=== PATIENT | female | born 1960 | race Caucasian/White ===

== ENCOUNTER 2017-01-20 12:31 | Emergency (ER) | payer MEDICARE, OTHER ==
[~2017-01-20] VITALS: Ht 172.7 cm; Wt 54.4 kg
[~2017-01-20 12:31] MED LIST: HYDR-2758 PO; IBUP-1060 PO; MECL12.52 PO; OMEP20CA9 PO; PROC5TAB34 PO; [UNRECOGNIZED DRUG - OTHER]
[2017-01-20 13:15] VITALS: BP 132/80
--- NOTE | 2017-01-20 13:18 | PHYS DOC ---
Past Medical History Past Medical History: GERD, HIV, Other Additional Past Medical Histor: Headaches,Vertigo Past Surgical History: Tubal ligation, Other Additional Past Surgical Histo: Fx jaw with repair. Alcohol Use: Occasionally Drug Use: Marijuana Adult General Chief Complaint Chief Complaint: MECHANICAL FALL HPI HPI Patient is a 56 year old female with a history of HIV presents to the ED complaining of right knee pain 2 days. Patient was standing at a bar and fell down injuring her right knee. No symptoms prior to fall. Describes the pain as sharp. Rates the pain as 8 out of 10. Denies head/neck injury, LOC, vision changes, laceration, nausea/vomiting, chest pain or shortness of breath. Review of Systems Review of Systems Constitutional: Denies fever or chills [] Eyes: Denies change in visual acuity, redness, or eye pain [] HENT: Denies nasal congestion or sore throat [] Respiratory: Denies cough or shortness of breath [] Cardiovascular: No additional information not addressed in HPI [] GI: Denies abdominal pain, nausea, vomiting, bloody stools or diarrhea [] : Denies dysuria or hematuria [] Musculoskeletal: Complains of knee pain. Denies back pain. [] Integument: Denies rash or skin lesions [] Neurologic: Denies headache, focal weakness or sensory changes [] Endocrine: Denies polyuria or polydipsia [] All other systems were reviewed and found to be within normal limits, except as documented in this note. Current Medications Current Medications Current Medications Medications (Trade) Dose Ordered Sig/Isaac Start Time Stop Time Status Last Admin Dose Admin Acetaminophen/ Hydrocodone Bitart (Lortab 5/325) 1 tab 1X ONCE 01/20/17 13:45 01/20/17 13:46 DC 01/20/17 13:53 1 TAB Allergies Allergies Allergies Coded Allergies Type Severity Reaction Last Updated Verified No Known Drug Allergies 11/16/14 No Physical Exam Physical Exam Constitutional: Well developed, well nourished, no acute distress, non-toxic appearance. [] HENT: Normocephalic, atraumatic, bilateral external ears normal, oropharynx moist, no oral exudates, nose normal. [] Eyes: PERRLA, EOMI, conjunctiva normal, no discharge. [] Neck: Normal range of motion, no tenderness, supple, no stridor. [] Cardiovascular:Heart rate regular rhythm, no murmur [] Lungs & Thorax: Bilateral breath sounds clear to auscultation [] Abdomen: Bowel sounds normal, soft, no tenderness, no masses, no pulsatile masses. [] Skin: Warm, dry, no erythema, no rash. [] Back: No tenderness, no CVA tenderness. [] Extremities: MILD ANTERIOR RIGHT KNEE TENDERNESS/SWELLING. NO OVERLYING SKIN CHANGES., no cyanosis, no clubbing, ROM intact, no edema. [] Neurologic: Alert and oriented X 3, normal motor function, normal sensory function, no focal deficits noted. [] Psychologic: Affect normal, judgement normal, mood normal. [] Current Patient Data Vital Signs Vital Signs Date Time Temp Pulse Resp B/P (MAP) Pulse Ox O2 Delivery O2 Flow Rate FiO2 01/20/17 13:15 97.9 75 16 97 Room Air 97.9 EKG EKG [] Radiology/Procedures Radiology/Procedures []PROCEDURE: KNEE RIGHT 3V Right knee 3 views. History: Recent fall, right knee pain 3 views were taken of the right knee. On the lateral view there is irregularity of the inferior patella, possible nondisplaced fracture. There is no joint effusion. No other fracture or osseous abnormality is noted. Impression: 1. Possible nondisplaced fracture of the inferior patella. Course & Med Decision Making Course & Med Decision Making Pertinent Labs and Imaging studies reviewed. (See chart for details) []Discussed imaging findings with patient. Patient's pain improved. Vital stable , no acute distress. A knee immobilizer placed. Neurovascular intact post placement. Crutches given. Discussed follow-up with orthopedics early this week. Remain non-weightbearing until then. Discussed reasons to return to the ED. Patient understands and agrees with plan. Dragon Disclaimer Dragon Disclaimer This electronic medical record was generated, in whole or in part, using a voice recognition dictation system. Departure Departure Impression: Primary Impression: Patella fracture Disposition: 01 HOME, SELF-CARE Condition: IMPROVED Referrals: VITO LOPEZ MD (PCP) Patient Instructions: Patellar Fracture, Adult Scripts Hydrocodone/Apap 5-325 (NORCO 5-325 TABLET) 1 Each Tablet 1 TAB PO TID, #10 TAB Prov: CAYDEN HAMM 01/20/17 CAYDEN HAMM Jan 20, 2017 13:18
--- NOTE | 2017-01-20 13:41 | RAD ---
Right knee 3 views. History: Recent fall, right knee pain 3 views were taken of the right knee. On the lateral view there is irregularity of the inferior patella, possible nondisplaced fracture. There is no joint effusion. No other fracture or osseous abnormality is noted. Impression: 1. Possible nondisplaced fracture of the inferior patella.
[2017-01-20] MEDS ORDERED: HYDROcodone/APAP 5/325MG 1 TAB TABLET PO ONE (13:45)
[2017-01-20] MEDS ORDERED: HYDR-971 PO (13:58)
== END 2017-01-20 14:08 | disposition home or self-care (01) ==
LOC: ER 12:31
DX: S82.001A Unspecified fracture of right patella, initial encounter for closed fracture (principal); K21.9 Gastro-esophageal reflux disease without esophagitis; F12.10 Cannabis abuse, uncomplicated; Z21 Asymptomatic human immunodeficiency virus [HIV] infection status; W18.39XA Other fall on same level, initial encounter; Y93.89 Activity, other specified; Y92.89 Other specified places as the place of occurrence of the external cause; Y99.8 Other external cause status
CPT/HCPCS: 29505; 73562; 99284-25

== ENCOUNTER 2018-01-21 12:50 | Emergency (ER) | payer MEDICARE, OTHER ==
[~2018-01-21] VITALS: Ht 175.3 cm; Wt 59.4 kg
[~2018-01-21 12:50] MED LIST changes: -HYDR-2758 PO; +HYDR-2761 PO; +HYDR-3164 PO
[2018-01-21] MEDS ORDERED: LIDO:MAALOX 1:1 20 ML SINGLE DOSE. PO ONE ×2 (13:15→14:45)
[2018-01-21] MEDS ORDERED: IV NORMAL SALINE 1000ML BAG 1,000 ML IV ONE ×2 (13:15)
[2018-01-21] MEDS ORDERED: ONDANSETRON PF 4 MG/2 ML VIAL. IV ONE ×2 (13:15→14:00)
[2018-01-21 13:37] LABS: BASO % 0 % (0-3); EOS # 0.1 x10^3/uL (0.0-0.7); EOS % 1 % (0-3); HEMATOCRIT 39.7 % (36.0-47.0); HEMOGLOBIN 13.7 g/dL (12.0-15.5); LYMPH # 1.6 x10^3/uL (1.0-4.8); LYMPH % 13 % (24-48); MEAN CORPUSCULAR HEMOGLOBIN 36 pg (25-35); MEAN CORPUSCULAR HGB CONC 35 g/dL (31-37); MEAN CORPUSCULAR VOLUME 103 fL (79-100); MONO # 0.6 x10^3/uL (0.0-1.1); MONO % 5 % (0-9); NEUT % 81 % (31-73); PLATELET COUNT 201 x10^3/uL (140-400); RED BLOOD COUNT 3.84 x10^6/uL (3.50-5.40); RED CELL DISTRIBUTION WIDTH 13.1 % (11.5-14.5); WHITE BLOOD COUNT 12.3 x10^3/uL (4.0-11.0)
[2018-01-21 13:47] LABS: CALCIUM 9.6 mg/dL (8.5-10.1); CREATININE 1.1 mg/dL (0.6-1.0); GFR 51.4; POTASSIUM 4.1 mmol/L (3.5-5.1)
--- NOTE | 2018-01-21 13:49 | EKG ---
[facility] [address] [place] [address] Test Date: 2018-01-21 Test Time: 13:34:03 Pat Name: INESSA CARRIZALES Department: Room: Gender: F Assistant Account Manager: NAREN : 1960 Requested By: LISSETH HENSON Order Number: [id number] Reading MD: Measurements Intervals Nursery Rate: 50 P: 60 PA: 140 QRS: -28 QRSD: 82 T: 56 QT: 470 QTc: 431 Interpretive Statements SINUS RHYTHM LEFTWARD AXIS OTHERWISE NORMAL ECG RI6.01 No previous ECG available for comparison
[2018-01-21 13:52] LABS: ALBUMIN 4.1 g/dL (3.4-5.0); ALBUMIN/GLOBULIN RATIO 1.2 (1.0-1.7); TOTAL BILIRUBIN 0.3 mg/dL (0.2-1.0); TOTAL PROTEIN 7.5 g/dL (6.4-8.2)
--- NOTE | 2018-01-21 13:53 | PHYS DOC ---
Past Medical History Past Medical History: GERD, HIV, Other Additional Past Medical Histor: Headaches,Vertigo Past Surgical History: Tubal ligation, Other Additional Past Surgical Histo: Fx jaw with repair. Alcohol Use: Occasionally Drug Use: Marijuana Adult General Chief Complaint Chief Complaint: NAUSEA/VOMITING/DIARRHA HPI HPI Patient is a 57 year old f who presents for evaluation of intractable vomiting. pt reports history of esophageal stenosis requiring dilation approx 1 year ago. Reports increased reflux/GERD symptoms of the past few weeks. Ran out of her omeprazole approximately 1-2 months ago. Has an appointment with GI on Sunday. Patient reports intractable vomiting this a.m. Unable tolerate fluids. Denies any sensation of food bolus or impacted foreign body. No chest pain. No abdominal pain. Denies any diarrhea, fever, GI bleed symptoms. Review of Systems Review of Systems Constitutional: Denies fever or chills [] Eyes: Denies change in visual acuity, redness, or eye pain [] HENT: Denies nasal congestion or sore throat [] Respiratory: Denies cough or shortness of breath [] Cardiovascular: No chest pain, No Orthopnea, no LE edema GI: No abdominal pain, No diarrhea. Vomiting and nausea present : Denies dysuria or hematuria [] Musculoskeletal: Denies back pain or joint pain [] Integument: Denies rash or skin lesions [] Neurologic: Denies headache, focal weakness or sensory changes [] Endocrine: Denies polyuria or polydipsia [] All other systems were reviewed and found to be within normal limits, except as documented in this note. Current Medications Current Medications Current Medications Medications (Trade) Dose Ordered Sig/Isaac Start Time Stop Time Status Last Admin Dose Admin Metoclopramide HCl (Reglan Vial) 10 mg 1X ONCE 01/21/18 14:00 01/21/18 14:01 DC 01/21/18 14:13 10 MG Multi-Ingredient Mouthwash/Gargle (Gi Cocktail) 20 ml ONCE ONCE 01/21/18 14:45 01/21/18 14:46 DC Ondansetron HCl (Zofran) 8 mg 1X ONCE 01/21/18 14:00 01/21/18 14:01 DC 01/21/18 14:17 8 MG Sodium Chloride 1,000 ml @ 1,000 mls/hr 1X ONCE 01/21/18 13:15 01/21/18 14:14 DC 01/21/18 13:31 1,000 MLS/HR Allergies Allergies Allergies Coded Allergies Type Severity Reaction Last Updated Verified No Known Drug Allergies 11/16/14 No Physical Exam Physical Exam Constitutional: Well developed, well nourished, appears stated age. HENT: Normocephalic, atraumatic, Neck: no stridor. [] Cardiovascular:Heart rate regular rhythm, no murmur [] Lungs & Thorax: Bilateral breath sounds clear to auscultation [] Abdomen: Bowel sounds normal, soft, no tenderness, no masses, no pulsatile masses. [] Skin: Warm, dry, no erythema, no rash. [] Back: No tenderness, no CVA tenderness. [] Extremities: No tenderness, no edema. [] Neurologic: Alert and oriented X 3, no focal deficits noted. [] Psychologic: Affect normal, judgement normal, mood normal. [] Current Patient Data Vital Signs Vital Signs Date Time Temp Pulse Resp B/P (MAP) Pulse Ox O2 Delivery O2 Flow Rate FiO2 01/21/18 14:09 56 212/100 (137) 97 Room Air 01/21/18 13:17 97.5 16 97.5 Lab Values Laboratory Tests Test 01/21/18 13:24 White Blood Count 12.3 x10^3/uL (4.0-11.0) H Red Blood Count 3.84 x10^6/uL (3.50-5.40) Hemoglobin 13.7 g/dL (12.0-15.5) Hematocrit 39.7 % (36.0-47.0) Mean Corpuscular Volume 103 fL (79-100) H Mean Corpuscular Hemoglobin 36 pg (25-35) H Mean Corpuscular Hemoglobin Concent 35 g/dL (31-37) Red Cell Distribution Width 13.1 % (11.5-14.5) Platelet Count 201 x10^3/uL (140-400) Neutrophils (%) (Auto) 81 % (31-73) H Lymphocytes (%) (Auto) 13 % (24-48) L Monocytes (%) (Auto) 5 % (0-9) Eosinophils (%) (Auto) 1 % (0-3) Basophils (%) (Auto) 0 % (0-3) Neutrophils # (Auto) 10.0 x10^3uL (1.8-7.7) H Lymphocytes # (Auto) 1.6 x10^3/uL (1.0-4.8) Monocytes # (Auto) 0.6 x10^3/uL (0.0-1.1) Eosinophils # (Auto) 0.1 x10^3/uL (0.0-0.7) Basophils # (Auto) 0.0 x10^3/uL (0.0-0.2) Sodium Level 142 mmol/L (136-145) Potassium Level 4.1 mmol/L (3.5-5.1) Chloride Level 103 mmol/L (98-107) Carbon Dioxide Level 26 mmol/L (21-32) Anion Gap 13 (6-14) Blood Urea Nitrogen 22 mg/dL (7-20) H Creatinine 1.1 mg/dL (0.6-1.0) H Estimated GFR (Cockcroft-Gault) 51.4 BUN/Creatinine Ratio 20 (6-20) Glucose Level 89 mg/dL (70-99) Calcium Level 9.6 mg/dL (8.5-10.1) Total Bilirubin 0.3 mg/dL (0.2-1.0) Aspartate Amino Transferase (AST) 24 U/L (15-37) Alanine Aminotransferase (ALT) 21 U/L (14-59) Alkaline Phosphatase 51 U/L (46-116) Troponin I Quantitative < 0.017 ng/mL (0.000-0.055) Total Protein 7.5 g/dL (6.4-8.2) Albumin 4.1 g/dL (3.4-5.0) Albumin/Globulin Ratio 1.2 (1.0-1.7) Lipase 319 U/L (73-393) Laboratory Tests 01/21/18 13:24 Laboratory Tests 01/21/18 13:24 EKG EKG NSR, HR 50, No ST segment changes[] Radiology/Procedures Radiology/Procedures [] Course & Med Decision Making Course & Med Decision Making Pertinent Labs and Imaging studies reviewed. (See chart for details) []Feels better, tolerating PO, has follow up with GI in two days. Reassuring electrolytes. has zofran at home. Will prescribed phenergan. Pt told RN after my evaluation that she had significant ETOH last night. She has been out of Omprazole x 1 month. Will provide Rx. Advised follow up with GI. discussed liquid diet x24 hrs. return precautions given. Patient verbalized understanding. All questions answered. Jim Disclaimer Jim Disclaimer This electronic medical record was generated, in whole or in part, using a voice recognition dictation system. Departure Departure Impression: Primary Impression: Dehydration Additional Impressions: Vomiting GERD (gastroesophageal reflux disease) Disposition: HOME, SELF-CARE Condition: IMPROVED Referrals: VITO LOPEZ MD (PCP) Patient Instructions: Nausea and Vomiting Additional Instructions: Thank you for coming to [facility]. Please repeat the attached handouts. Please follow-up with your primary care physician. Return to the ER if your symptoms worsen or you have any other concerns. Please eat a liquid diet for the next 24 hrs. Advance slowly. Scripts Omeprazole (OMEPRAZOLE) 40 Mg Capsule. 1 CAP PO DAILY, #30 CAP 3 Refills Prov: LISSETH HENSON DO 01/21/18 Promethazine Hcl (PROMETHAZINE HCL) 25 Mg Tablet 1 TAB PO PRN Q6HRS, #20 TAB Prov: LISSETH HENSON DO 01/21/18 Problem Qualifiers LISSETH HENSON DO Jan 21, 2018 13:53
[2018-01-21] MEDS ORDERED: METOCLOPRAMIDE HCL 10 MG/2 ML VIAL. IV ONE (14:00)
[2018-01-21] MEDS ORDERED: PROM25TA10 PO (15:25)
[2018-01-21] MEDS ORDERED: OMEP40CA5 PO (15:34)
[2018-01-21 15:40] VITALS: BP 149/91
[2018-01-23] MEDS ORDERED: PANT40GR PO (14:46)
== END 2018-01-21 15:41 | disposition home or self-care (01) ==
LOC: ER 12:50
DX: E86.0 Dehydration (principal); K21.9 Gastro-esophageal reflux disease without esophagitis
CPT/HCPCS: 99284; J2405; J2765; J7030; 36415; 80053; 83690; 84484; 85025; 93005

== ENCOUNTER → 2018-04-11 | Day surgery (SDC) | payer MEDICARE, OTHER ==
[~2018-04-11] MED LIST changes: +CALC-77 PO; +CLON1TAB11 PO; +DESV50TA PO; +DRON400T PO; +IV RINGERS,LACTATED 1000ML 1,000 ML IV SCH; +MELA3TAB2 PO; +OMEP20CA10 PO; -OMEP20CA9 PO; +OMEP40CA5 PO; +PANT40GR PO; +PROM25TA10 PO; +PROP80CA3 PO; +PROPOFOL 20 ML IV ONE; +SIMV20TA3 PO; +SUMA100T4 PO
[2018-04-11 14:24] VITALS: BP 130/66
--- NOTE | 2018-04-12 08:01 | HP ---
ADMIT DATE: 04/11/2018 REFERRING PHYSICIAN: Erwin Chase MD REASON: Dysphagia, abdominal pain and reflux. HISTORY OF PRESENT ILLNESS: This is a 57-year-old female with a past medical history significant for GERD, HIV, anemia and anxiety, is seen with recurrent epigastric pain associated with solid food dysphagia. Weight has been increasing since her hospital stay. Prior dilatation did help in the past. With continued issues, she is here today for further evaluation. PAST MEDICAL HISTORY: GERD, HIV, history of dysphagia, history of esophageal stricture and depression. ALLERGIES: None. MEDICATIONS: Include [place], meclizine, pantoprazole, promethazine and antiviral medicines including Truvada, Norvir and Reyataz. FAMILY AND SOCIAL HISTORY: She is a smoker and drinker. Family history is significant for diabetes, hypertension, liver disease and myocardial infarction with multiple grandparents. PAST SURGICAL HISTORY: Status post tubal ligation. REVIEW OF SYSTEMS: Per records. PHYSICAL EXAMINATION: GENERAL: A well-nourished, well-developed female. VITAL SIGNS: Temperature is 97, pulse 64, respiratory rate 18. HEENT: Reveals normocephalic and atraumatic head. Pupils and extraocular muscles are not tested. Sclerae anicteric. NECK: Supple. LUNGS: Clear. CARDIOVASCULAR: Reveals an S1, S2 without S3, S4 or appreciable murmur. ABDOMEN: Reveals soft abdomen, normal bowel sounds without appreciable hepatosplenomegaly. EXTREMITIES: Reveals no cyanosis, clubbing or edema. IMPRESSION: Dysphagia and epigastric abdominal pain with reflux and HIV. The etiology is to be determined including Schatzki's ring certainly is a differential. Ba's, malignancy, peptic ulcer disease are in the differential. We will recommend upper endoscopy, possible biopsy and dilatation. Risks and benefits of the procedure including risk of hemorrhage and perforation during operation were discussed and the patient is willing to proceed. KESHA BYERS MD DR: MARTHA/man JOB#: [id number] / [id number]
== END | disposition home or self-care (01) ==
LOC: SURG 12:35
PROVIDERS: ATTEND Internal Medicine Gastroenterology
DX: K22.2 Esophageal obstruction (principal); K21.9 Gastro-esophageal reflux disease without esophagitis; D64.9 Anemia, unspecified; F41.9 Anxiety disorder, unspecified; F32.9 Major depressive disorder, single episode, unspecified; Z79.899 Other long term (current) drug therapy; F17.200 Nicotine dependence, unspecified, uncomplicated; Z72.89 Other problems related to lifestyle; Z83.3 Family history of diabetes mellitus; Z82.49 Family history of ischemic heart disease and other diseases of the circulatory system; Z98.51 Tubal ligation status
CPT/HCPCS: 43235; 43450; J2704

== ENCOUNTER → 2018-09-16 | Outpatient (CLI) | payer MEDICARE, OTHER ==
[2018-04-11 14:24] VITALS: BP 130/66
[~2018-09-16] MED LIST changes: -IV RINGERS,LACTATED 1000ML 1,000 ML IV SCH; -PROPOFOL 20 ML IV ONE
--- NOTE | 2018-09-16 11:54 | KCIC ---
CT LOW DOSE LUNG SCREENING History: Smoking history. Technique: Low-dose noncontrast CT of the chest was performed. Coronal and sagittal reconstructions were performed. Exposure: One or more of the following individualized dose reduction techniques were utilized for this examination: 1. Automated exposure control 2. Adjustment of the mA and/or kV according to patient size 3. Use of iterative reconstruction technique. Comparison: None Findings: Chest: No consolidation or pleural effusion. Normal heart size. No pathologic axillary, mediastinal or hilar adenopathy. Calcified right hilar lymph nodes with calcified right lower lobe pulmonary nodules likely related to prior granulomatous disease. Mild centrilobular and paraseptal emphysema. 2 mm left upper lobe pulmonary nodule (series 6 image #151). Linear density along the left major fissure. Upper abdomen: The imaged upper abdomen is unremarkable. Prior granulomatous disease within the spleen. Bones: No pathologic osseous lesions. Impression: 1. Tiny left upper lobe pulmonary nodule. Lung RADS 2. Continue annual screening low dose CT in 12 months. 2. Mild centrilobular emphysema. 3. Prior granulomatous disease. Electronically signed by: Travon Espinoza DO (09/16/2018 11:51 AM) [id number]
== END | disposition home or self-care (01) ==
LOC: KCIC CT 11:12
PROVIDERS: ATTEND Family Medicine
DX: Z12.2 Encounter for screening for malignant neoplasm of respiratory organs (principal); J43.2 Centrilobular emphysema; R91.8 Other nonspecific abnormal finding of lung field; F17.210 Nicotine dependence, cigarettes, uncomplicated; D71 Functional disorders of polymorphonuclear neutrophils
CPT/HCPCS: G0297

== ENCOUNTER → 2018-12-11 | Outpatient (CLI) | payer OTHER ==
[2018-04-11 14:24] VITALS: BP 130/66
[~2018-12-11] MED LIST changes: -CLON1TAB11 PO; +CLONAZEPAM1 MG PO; -MELA3TAB2 PO; +MELA3TAB56 PO; +OMEP40CA45 PO; -OMEP40CA5 PO
--- NOTE | 2018-12-11 14:16 | RAD ---
History: Regurgitation Procedure: The patient ate a standard meal containing 2.1 mCi Tc-99m sulfur colloid. Scintigraphic images of the abdomen were obtained. Regions of interest were drawn around the stomach to generate a gastric emptying time/activity curve. Findings: Time to half emptying for solids is calculated at approximately 93 minutes. Impression: Time to half emptying of solids is calculated at 93 minutes which is near the upper limits of normal. Electronically signed by: Sesar Robbins MD (12/11/2018 2:13 PM) [facility]
== END | disposition home or self-care (01) ==
LOC: NM 08:00
PROVIDERS: ATTEND Family Medicine
DX: K21.9 Gastro-esophageal reflux disease without esophagitis (principal)
CPT/HCPCS: 78264; A9541

== ENCOUNTER → 2019-04-15 | Outpatient (CLI) | payer BC, OTHER ==
[2018-04-11 14:24] VITALS: BP 130/66
[~2019-04-15] MED LIST changes: -MECL12.52 PO; +MECL12.573 PO; +MELA3TAB4 PO; -MELA3TAB56 PO; -OMEP20CA10 PO; +OMEP20CA16 PO; +SIMV20TA18 PO; -SIMV20TA3 PO
--- NOTE | 2019-04-16 09:03 | RAD ---
History: Routine screening. Technique: Bilateral digital mammographic routine views were obtained with 2-D and 3-D technique including CAD - computer aided detection. Comparison: None. This is a baseline.. Findings: Breast Tissue Density C : The breast tissue is heterogeneously dense. Scattered fibroglandular elements may obscure underlying pathology. There are no suspicious masses, microcalcifications or areas of architectural distortion. Impression: No suspicious findings. BI-RADS Category 1: Negative. Normal interval followup. Your mammogram demonstrates that you have dense breast tissue, which could hide abnormalities, and if you have other risk factors for breast cancer that have been identified, you might benefit from supplemental screening tests that may be suggested by your ordering physician. Dense breast tissue, in and of itself, is a relatively common condition. This information is not provided to cause undue concern, but rather to raise your awareness and to promote discussion with your physician regarding the presence of other risk factors, in addition to dense breast tissue. A report of your mammography results will be sent to you and your physician. You should contact your physician if you have any questions or concerns regarding this report. A mammogram does not have 100% sensitivity and therefore a negative imaging study should not delay further work up of a suspicious abnormality. The patient will receive a letter with the results in the mail. Patient information is entered into the reminder system with a target due date for the next screening mammogram. The patient will receive a reminder. "Our facility is accredited by the [employer] Mammography Program." BI-RADS 1 -- negative findings (within normal)
== END | disposition home or self-care (01) ==
LOC: MAMMO 13:09
PROVIDERS: ATTEND Family Medicine
DX: Z12.31 Encounter for screening mammogram for malignant neoplasm of breast (principal)
CPT/HCPCS: 77063; 77067

== ENCOUNTER 2019-08-16 11:07 | Emergency (ER) | payer MEDICARE, OTHER ==
[~2019-08-16] VITALS: Ht 175.3 cm; Wt 65.0 kg
[2019-08-16 11:19] VITALS: BP 169/96
--- NOTE | 2019-08-16 12:21 | PHYS DOC ---
Past Medical History Past Medical History: GERD, HIV, Other Additional Past Medical Histor: Headaches,Vertigo Past Surgical History: Tubal ligation, Other Additional Past Surgical Histo: Fx jaw with repair. Smoking Status: Current Every Day Smoker Alcohol Use: Occasionally Drug Use: Marijuana General Adult EDM: Chief Complaint: WRIST PAIN HPI: HPI: Patient is a 58 year old female who presents to the emergency department with complaints of right wrist and right thumb pain after a fall into the road last night. Patient states she went outside to check a suspicious vehicle that was in her neighborhood when she turned around to see something she lost her balance and fell. She rates the pain a 10 out of 10 on the pain scale, she denies any alleviating factors the pain is worse with palpation and movement. She denies any radiation of the pain. Patient reports that she took 2-800 mg tablets of i buprofen earlier this morning with no relief of her symptoms. She denies any decreased sensation right hand or wrist. She denies hitting her head, loss of consciousness, nausea, vomiting, headache, neck, or back pain after the fall. Review of Systems: Review of Systems: Constitutional: Denies fever or chills. [] Musculoskeletal: See HPI Integument: Denies rash. [] Neurologic: Denies headache, focal weakness or sensory changes. [] Psychiatric: Denies depression or anxiety. [] Heart Score: Risk Factors: Risk Factors: DM, Current or recent (<one month) smoker, HTN, HLP, family history of CAD, obesity. Risk Scores: Score 0 - 3: 2.5% MACE over next 6 weeks - Discharge Home Score 4 - 6: 20.3% MACE over next 6 weeks - Admit for Clinical Observation Score 7 - 10: 72.7% MACE over next 6 weeks - Early Invasive Strategies Allergies: Allergies: Allergies Coded Allergies Type Severity Reaction Last Updated Verified No Known Drug Allergies 04/11/18 No Physical Exam: PE: Constitutional: Well developed, well nourished, no acute distress, non-toxic appearance. [] HENT: Normocephalic, atraumatic, bilateral external ears normal, nose normal. [] Eyes: PERRLA, EOMI, conjunctiva normal, no discharge. [] Neck: Normal range of motion, no stridor. [] Cardiovascular:Heart rate regular rhythm Lungs & Thorax: Respirations even and unlabored, no retractions, no respiratory distress Skin: Warm, dry, no erythema, no rash. [] Extremities: Right wrist: lateral tenderness to palpation, no obvious deformity, 2+ radial pulse, limited range of motion due to pain, sensation intact, no cyanosis; left hand: Tenderness to palpation of the left first digit without obvious deformity or crepitus, ROM intact, no edema. [] Neurologic: Alert and oriented X 3, no focal deficits noted. [] Psychologic: Affect normal, judgement normal, mood normal. [] Current Patient Data: Vital Signs: Vital Signs Date Time Temp Pulse Resp B/P (MAP) Pulse Ox O2 Delivery O2 Flow Rate FiO2 08/16/19 11:19 99.0 99 18 169/96 (120) 96 Room Air 99.0 EKG: EKG: [] Radiology/Procedures: Radiology/Procedures: PROCEDURE: HAND RIGHT 3V Examination: HAND RIGHT 3V, WRIST 3V RIGHT History: Reason: R hand/thumb and R wrist pain after fall last night / Spl. Instructions: / History: Comparison/Correlation: None Findings: 3 images of the right hand and 3 images of the right wrist were obtained. Osteopenia is present. Joint spaces are adequate. Longitudinal lucencies involving the distal radial metaphysis extending intra-articularly are noted. Bony density on the dorsal aspect of the distal radius on the lateral view of the hand is noted. Impression: Distal radial metaphyseal fractures are suspected. Small bony density along the dorsal aspect of the distal radial metaphysis which may represent a displaced bony fragment also noted. Osteopenia.[] Course & Med Decision Making: Course & Med Decision Making Pertinent Labs and Imaging studies reviewed. (See chart for details) [] Dragon Disclaimer: Dragon Disclaimer: This electronic medical record was generated, in whole or in part, using a voice recognition dictation system. Departure Departure Impression: Primary Impression: Radius distal fracture Qualified Codes: S52.501A - Unspecified fracture of the lower end of right radius, initial encounter for closed fracture Disposition: 01 HOME, SELF-CARE Condition: STABLE Referrals: CYNDIE PERDOMO MD Patient Instructions: Radius Fracture with [facility] Additional Instructions: Fill prescription(s) and use as directed. Recommend application of ice, elevation, and rest of affected extremity. Wear the splint that was placed until follow up appointment. Return to the ER if your symptoms worsen. Scripts Hydrocodone Bit/Acetaminophen (HYDROCODONE-APAP 5-325 ) 1 Tab Tablet 1 TAB PO PRN Q6HRS PRN for PAIN for 3 Days, #12 TAB 0 Refills Prov: ALCON SILVERMAN APRN 08/16/19 Justicifation of Admission Dx: Justifications for Admission: Justification of Admission Dx: N/A Splinting Splinting : Location: R wrist Pre-Made Type: velcro (wrist splint) Pre-Proc Neuro Vasc Exam: normal Post-Proc Neuro Vasc Exam: normal, unchanged from pre-exam ALCON SILVERMAN APRN Aug 16, 2019 12:21
[2019-08-16] MEDS ORDERED: HYDR-2761 PO (12:46)
== END 2019-08-16 13:03 | disposition home or self-care (01) ==
LOC: ER 11:07
DX: S52.501A Unspecified fracture of the lower end of right radius, initial encounter for closed fracture (principal); M79.644 Pain in right finger(s); M85.841 Other specified disorders of bone density and structure, right hand; K21.9 Gastro-esophageal reflux disease without esophagitis; F17.200 Nicotine dependence, unspecified, uncomplicated; W18.39XA Other fall on same level, initial encounter; Y93.89 Activity, other specified; Y92.89 Other specified places as the place of occurrence of the external cause; Y99.8 Other external cause status
CPT/HCPCS: 29125; 73110; 73130; 99284

== ENCOUNTER → 2020-04-12 | Outpatient (CLI) | payer OTHER ==
[~2020-04-12] MED LIST changes: +IOHEXOL 240 MG/ML 50ML VIAL. IV ONE; -MECL12.573 PO; +MECL12.582 PO
--- NOTE | 2020-04-12 18:39 | RAD ---
EXAM: CT Chest, Abdomen, and Pelvis without IV contrast INDICATION: Reason: WEIGHT LOSS, OMNI 240 PO 30 MLS / Spl. Instructions: / History: TECHNIQUE: Multi-detector row CT images were acquired from the thoracic inlet through the ischial tu berosities without the use of IV contrast. Sagittal and coronal images were acquired from the transax ial data. All CT scans performed at this facility utilize dose optimization techniques as appropriate to the exam, including the following: Automated exposure control and adjustment of the mA and/or KV according to patient size (this includes techniques or standardized protocols for targeted exams wher e dose is indication/reason for exam). ORAL CONTRAST: Administered COMPARISON: None FINDINGS: The absence of IV contrast limits evaluation of soft tissue pathology. CHEST: CARDIOVASCULAR: There is a moderate amount of pericardial fluid in the posterior portion of the super ior aortic recess. Otherwise unremarkable MEDIASTINUM & AI: Calcified right hilar lymph nodes no mediastinal mass or adenopathy identified on noncontrast CT. LUNGS: Centrilobular emphysema is present. Scattered punctate calcified lung nodules are evident on t he right. PLEURAL SPACE: No pleural effusions or pneumothorax. OSSEOUS & SOFT TISSUE: Unremarkable ABDOMEN/PELVIS: LIVER: Unremarkable BILIARY SYSTEM: Gallbladder is unremarkable. Bile ducts are not dilated. PANCREAS: Unremarkable SPLEEN: Unremarkable ADRENALS: Unremarkable KIDNEYS & URETERS: Unremarkable BLADDER: Unremarkable REPRODUCTIVE ORGANS: Unremarkable GASTROINTESTINAL: The stomach, small bowel, and colon show scattered colonic diverticuli but otherwis e are unremarkable.. The appendix is normal. MESENTERY/PERITONEUM/RETROPERITONEUM: Unremarkable VASCULAR: Unremarkable LYMPH NODES: No adenopathy OSSEOUS & SOFT TISSUES: Unremarkable IMPRESSION: No specific cause for weight loss is identified on noncontrast chest abdomen and pelvis CT. Electronically signed by: Jostin Vaca MD (04/12/2020 6:37 PM) [id number]
== END ==
LOC: CT 13:44
PROVIDERS: ATTEND Family Medicine
DX: K57.30 Diverticulosis of large intestine without perforation or abscess without bleeding (principal); J43.2 Centrilobular emphysema; R91.1 Solitary pulmonary nodule
CPT/HCPCS: 71250; 74176; Q9966

== ENCOUNTER 2021-07-10 22:18 | Emergency (ER) | payer MEDICARE, OTHER ==
[~2021-07-10] VITALS: Ht 172.7 cm; Wt 71.0 kg
[~2021-07-10 22:18] MED LIST changes: -DRON400T PO; +DRON400T6 PO; -IOHEXOL 240 MG/ML 50ML VIAL. IV ONE; -OMEP40CA45 PO; +OMEP40CA7 PO
[2021-07-10] MEDS ORDERED: MORPHINE SULFATE 4 MG/ML INJ. IVP ONE (23:00)
[2021-07-10] MEDS ORDERED: MORPHINE SULFATE 4 MG/ML INJ. IM ONE (23:30)
--- NOTE | 2021-07-10 23:34 | PHYS DOC ---
Past Medical History Past Medical History: GERD, HIV, Other Additional Past Medical Histor: Headaches,Vertigo Past Surgical History: Tubal ligation, Other Additional Past Surgical Histo: Fx jaw with repair. Smoking Status: Current Every Day Smoker Alcohol Use: Occasionally Drug Use: Marijuana General Adult EDM: Chief Complaint: SHOULDER INJURY HPI: HPI: Patient is a 60 year old female with a history of hypertension and HIV who presents to the emergency department today with complaints of right shoulder pain. Patient states that she was playing with her dog when she fell onto her right shoulder. She states she had immediate pain. She states her pain is a 9 out of 10. It does not radiate. Pain is worse with movement. No palliative factors for the pain. Pain has been constant. She denies any other injury. She did not strike her head or have loss of consciousness. She does not take any blood thinners. Review of Systems: Review of Systems: Constitutional: Denies fever or chills. [] Eyes: Denies change in visual acuity. [] HENT: Denies nasal congestion or sore throat. [] Respiratory: Denies cough or shortness of breath. [] Cardiovascular: Denies chest pain or edema. [] GI: Denies abdominal pain, nausea, vomiting, bloody stools or diarrhea. [] : Denies dysuria. [] Musculoskeletal: Denies back pain [] Integument: Denies rash. [] Neurologic: Denies headache, focal weakness or sensory changes. [] Endocrine: Denies polyuria or polydipsia. [] Lymphatic: Denies swollen glands. [] Psychiatric: Denies depression or anxiety. [] Heart Score: C/O Chest Pain: No Family History: Family History: Noncontributory Current Medications: Current Medications Medications (Trade) Dose Ordered Sig/Isaac Start Time Stop Time Status Last Admin Dose Admin Morphine Sulfate (Morphine Sulfate) 4 mg 1X ONCE 07/10/21 23:00 07/10/21 23:02 DC Allergies: Allergies: Allergies Coded Allergies Type Severity Reaction Last Updated Verified No Known Drug Allergies 04/11/18 No Physical Exam: PE: Constitutional: Well developed, well nourished, no acute distress, non-toxic appearance. [] HENT: Normocephalic, atraumatic, bilateral external ears normal, oropharynx moist, no oral exudates, nose normal. [] Eyes: PERRLA, EOMI, conjunctiva normal, no discharge. [] Neck: Normal range of motion, no tenderness, supple, no stridor. [] Cardiovascular:Heart rate regular rhythm, no murmur [] Lungs & Thorax: Bilateral breath sounds clear to auscultation [] Abdomen: Bowel sounds normal, soft, no tenderness, no masses, no pulsatile masses. [] Skin: Warm, dry, no erythema, no rash. [] Back: No tenderness, no CVA tenderness. [] Extremities: Tenderness to palpation along the right humeral head. There is pain with range of motion. She has 2+ radial pulses. Median, ulnar, radial and axillary nerves are intact. Neurologic: Alert and oriented X 3, normal motor function, normal sensory function, no focal deficits noted. [] Psychologic: Affect normal, judgement normal, mood normal. [] Current Patient Data: Vital Signs: Vital Signs Date Time Temp Pulse Resp B/P (MAP) Pulse Ox O2 Delivery O2 Flow Rate FiO2 07/10/21 22:30 97.9 96 18 131/75 (93) 96 Room Air 97.9 EKG: EKG: [] Radiology/Procedures: Radiology/Procedures: XR HUMERUS_RT 2 VIEWS, XR SHOULDER_RIGHT 2+ VIEWS Clinical Indication: Reason: fall / Spl. Instructions: / History: Comparison: None. Findings: There is acute traumatic fracture of the surgical neck of the proximal right humerus. The distal fracture fragment is minimally medially displaced. The fracture is suspected to involve the greater tuberosity which is nondisplaced. There is no glenohumeral dislocation. The AC joint is intact. The visualized right lung is clear. There is no acute fracture of the more distal humerus. No obvious deformity of the elbow. IMPRESSION: Acute traumatic fractures of the proximal neck of the humerus and the greater tuberosity. Electronically signed by: Daniele Villatoro MD (07/10/2021 11:37 PM) [facility] Impression: Right humeral neck fracture Course & Med Decision Making: Course & Med Decision Making Patient remained hemodynamically stable in the emergency department. She was evaluated at the bedside with a physical exam. She is neurovascularly intact. Plain films of the right shoulder and humerus were obtained and do show a right humeral neck fracture. Patient was placed in a sling. She was given morphine for pain control. She will follow-up with Dr. Mensah from orthopedics next week. Jim Disclaimer: Jim Disclaimer: This electronic medical record was generated, in whole or in part, using a voice recognition dictation system. Departure Departure Impression: Primary Impression: Fracture of neck of right humerus Additional Impression: Fall Disposition: 01 HOME / SELF CARE / HOMELESS Condition: IMPROVED Referrals: Belen NAPOLES MD (PCP) Please follow up with Dr. Mensah this week. KANDY MENSAH DO Patient Instructions: Humerus Fracture, Treated with Immobilization Scripts Hydrocodone Bit/Acetaminophen (HYDROCODONE-APAP 5-325 ) 1 Tab Tablet 1 TAB PO PRN Q6HRS PRN for PAIN, #12 TAB 0 Refills Prov: ENA CONNELLY MD 07/10/21 ENA CONNELLY MD July 10, 2021 23:34
[2021-07-10 23:37] VITALS: BP 120/87
--- NOTE | 2021-07-10 23:39 | RAD ---
XR HUMERUS_RT 2 VIEWS, XR SHOULDER_RIGHT 2+ VIEWS Clinical Indication: Reason: fall / Spl. Instructions: / History: Comparison: None. Findings: There is acute traumatic fracture of the surgical neck of the proximal right humerus. The distal frac ture fragment is minimally medially displaced. The fracture is suspected to involve the greater tuber osity which is nondisplaced. There is no glenohumeral dislocation. The AC joint is intact. The visual ized right lung is clear. There is no acute fracture of the more distal humerus. No obvious deformity of the elbow. IMPRESSION: Acute traumatic fractures of the proximal neck of the humerus and the greater tuberosity. Electronically signed by: Daniele Villatoro MD (07/10/2021 11:37 PM) [facility]
[2021-07-10] MEDS ORDERED: HYDR-2761 PO (23:56)
== END 2021-07-11 00:53 | disposition home or self-care (01) ==
LOC: ER 22:18
DX: S42.291A Other displaced fracture of upper end of right humerus, initial encounter for closed fracture (principal); I10 Essential (primary) hypertension; K21.9 Gastro-esophageal reflux disease without esophagitis; F17.200 Nicotine dependence, unspecified, uncomplicated; W18.39XA Other fall on same level, initial encounter; Y93.89 Activity, other specified; Y92.89 Other specified places as the place of occurrence of the external cause; Y99.8 Other external cause status
CPT/HCPCS: 29125; 73030; 73060; 96372; 99284; A4565; J2270